=== PATIENT | female | born 1940 | race Caucasian/White ===

== ENCOUNTER → 2017-04-03 | Outpatient (CLI) | payer MEDICARE, BC ==
[~2017-04-03] MED LIST: AMBIEN 5MG TABLE5 MG PO; ASPIR-LOW81 MG PO; ASPIRIN E.C. 8181 MG PO; AVAPRO TAB150 MG/TAB PO; CALCIUM + D 6001 TAB PO; CELEBREX 200MG200 MG PO; CRESTOR 10MG10 MG PO; CRESTOR10 MG PO; FISH OIL CONC1000 MG PO; GLUCOPHAGE1000 MG PO; HCTZ12.5TAB PO; LOFIBRA160 MG PO; TOPROL XL 25MG25 MG PO; TOPROL XL25 MG PO; ZETIA10 MG PO; microzide PO
== END ==
LOC: COL.LAB 09:36
DX: S80.211A Abrasion, right knee, initial encounter (principal)

== ENCOUNTER 2017-07-19 11:28 | Day surgery (SDC) | payer MEDICARE, BC ==
[~2017-07-19] VITALS: Ht 162.7 cm; Wt 72.7 kg
[2017-07-19] VITALS (10 sets, daily range): BP systolic 129–159; BP diastolic 74–85; PULSE 47–61; TEMP 97.7–98.4
[~2017-07-19 11:28] MED LIST changes: +ASPI325T6 PO; -ASPIRIN E.C. 8181 MG PO; -AVAPRO TAB150 MG/TAB PO; +AVAPRO300 M1 PO; -GLUCOPHAGE1000 MG PO; +GLUCOPHAGE850 MG/TAB PO
[2017-07-19 12:12] LABS: HEMATOCRIT 42.1 % (37.0-47.0); HEMOGLOBIN 14.5 g/dl (12.5-16.0); MEAN CELL VOLUME 88 fl (80.0-100.0); MEAN CORPUSCULAR HEMOGLOBIN 30 pg (27.0-31.0); MEAN CORPUSCULAR HGB CONC 34 g/dl (33.0-37.0); MEAN PLATELET VOLUME 10.3 fl (7.4-10.4); PLATELET COUNT 311 K/mm3 (130-400); RED BLOOD COUNT 4.81 M/mm3 (4.10-5.30)
[2017-07-19 12:14] LABS: INR 1.2 (0.8-3.0); PROTHROMBIN TIME 13.3 SECONDS (9.7-12.8)
[2017-07-19 12:17] LABS: CALCIUM 10.7 mg/dL (8.4-10.2); CREATININE, serum 0.99 mg/dL (0.52-1.25); POTASSIUM 4.2 mmol/L (3.4-5.0)
[2017-07-19] MEDS ORDERED: PROCARDIA XL 3030 MG PO (12:36)
[2017-07-19] MEDS ORDERED: BYSTOLIC5 MG PO (12:36)
[2017-07-20 06:17] VITALS: BP 148/90; PULSE 92; TEMP 97.1
[2017-07-20 08:08] VITALS: BP 149/81; PULSE 62; TEMP 98.5
[2017-07-20 12:23] VITALS: PULSE 62; TEMP 98.2
== END 2017-07-20 13:55 | disposition home or self-care (01) ==
LOC: COL.CAR 11:28 → SURG 15:37 → JCC 19:42 → COL.CAR 07-20 13:55
PROVIDERS: Internal Medicine Interventional Cardiology
DX: I48.0 Paroxysmal atrial fibrillation (principal); I25.5 Ischemic cardiomyopathy; I49.5 Sick sinus syndrome; Z96.89 Presence of other specified functional implants; R05 Cough; Z79.84 Long term (current) use of oral hypoglycemic drugs; G47.30 Sleep apnea, unspecified; Z87.11 Personal history of peptic ulcer disease
CPT/HCPCS: OP; C1785; C1894; C1898; J0690; J2250; J3010; J7030

== ENCOUNTER → 2017-11-30 | Outpatient (CLI) | payer MEDICARE, BC ==
[~2017-11-30] MED LIST changes: +BYSTOLIC5 MG PO; +PROCARDIA XL 3030 MG PO
== END ==
LOC: MC.RAD 14:00
DX: Z12.31 Encounter for screening mammogram for malignant neoplasm of breast (principal)

== ENCOUNTER → 2018-12-08 | Outpatient (CLI) | payer MEDICARE, BC | LOC: MC.RAD 09:55 | DX: Z12.31 Encounter for screening mammogram for malignant neoplasm of breast (principal) ==

== ENCOUNTER → 2019-08-16 | Outpatient (CLI) | payer MEDICARE, BC ==
[~2019-08-16] MED LIST changes: +DAZIDOX20 MG PO; +MAGNESIUM250 M1 PO
== END ==
LOC: COL.RAD 11:11
DX: M54.32 Sciatica, left side (principal); M48.061 Spinal stenosis, lumbar region without neurogenic claudication; Z98.890 Other specified postprocedural states

== ENCOUNTER → 2019-08-17 | Outpatient (CLI) | payer MEDICARE, BC ==
[~2019-08-17] VITALS: Ht 162.6 cm; Wt 69.2 kg
[2019-08-17 13:09] VITALS: BP 164/80; PULSE 71
[2019-08-17 13:57] VITALS: BP 170/80; PULSE 62
--- NOTE | 2019-08-17 14:06 | NUR ---
DR BOOTH TOOK PT TO THE CAR IN WHEELCHAIR
== END ==
LOC: COL.RAD 12:37
DX: M54.32 Sciatica, left side (principal)
CPT/HCPCS: J3301

== ENCOUNTER → 2020-02-05 | Outpatient (CLI) | payer MEDICARE, BC | LOC: MC.RAD 15:00 | DX: Z12.31 Encounter for screening mammogram for malignant neoplasm of breast (principal) ==

== ENCOUNTER → 2021-02-17 | Outpatient (CLI) | payer MEDICARE, BC | LOC: MC.RAD 14:00 | DX: Z12.31 Encounter for screening mammogram for malignant neoplasm of breast (principal) ==

== ENCOUNTER → 2022-05-21 | Outpatient (CLI) | payer MEDICARE, BC | LOC: MC.RAD 14:13 | DX: Z12.31 Encounter for screening mammogram for malignant neoplasm of breast (principal) ==